=== PATIENT | male | born 1965 | race Caucasian/White ===

== ENCOUNTER → 2016-09-22 | Outpatient (CLI) | payer OTHER | LOC: BMCIMAGING 14:57 | PROVIDERS: ATTEND Podiatrist Foot & Ankle Surgery | DX: S82.62XD Displaced fracture of lateral malleolus of left fibula, subsequent encounter for closed fracture with routine healing (principal) ==

== ENCOUNTER → 2016-10-13 | Outpatient (CLI) | payer OTHER | LOC: FIMAGING 15:30 | PROVIDERS: ATTEND Orthopaedic Surgery | DX: Z01.818 Encounter for other preprocedural examination (principal); M17.11 Unilateral primary osteoarthritis, right knee; K59.00 Constipation, unspecified ==

== ENCOUNTER → 2016-11-16 | Outpatient (CLI) | payer OTHER | LOC: BMCIMAGING 15:50 | PROVIDERS: ATTEND Allergy & Immunology Allergy | DX: R05 Cough (principal); F17.200 Nicotine dependence, unspecified, uncomplicated ==

== ENCOUNTER 2016-12-06 08:48 | Observation (INO) | payer OTHER ==
[2016-11-25 16:28] LABS: % IMMATURE GRANULYOCYTES 0.3 % (0.0-1.1); ABSOLUTE IMMATURE GRANULOCYTES 0.03 10^3/uL (0.00-0.10); ADD DIFF? NO; ADD MORPH? NO; ADD SCAN? NO; ATYPICAL LYMPHOCYTE FLAG 0 (0-99); FRAGMENT RBC FLAG 0 (0-99); HEMATOCRIT 42.3 % (40.0-51.0); HEMOGLOBIN 15.1 g/dL (13.7-17.5); LEFT SHIFT FLG 0 (0-99); LIPEMIA HEMOLYSIS FLAG 90 (0-99); MEAN CELL HEMOGLOBIN 33.3 pg (27.9-34.1); MEAN CELL HEMOGLOBIN CONCENTR. 35.7 g/dL (32.4-36.7); MEAN CELL VOLUME 93.2 fL (81.5-99.8); MEAN PLATELET VOLUME 9.2 fL (8.7-11.7); PLATELET CLUMPS FLAG 10 (0-99); PLATELET COUNT 263 10^3/uL (150-400); RED BLOOD CELL COUNT 4.54 10^6/uL (4.40-6.38); RED CELL DISTRIBUTION WIDTH 12.3 % (11.5-15.2)
--- NOTE | 2016-12-06 07:06 | PDIAF ---
- Diagnosis Diagnosis: right knee djd Code Status: Full Code - Medication Management Discharge Medications: Medications to Continue on Transfer Acetaminophen [Tylenol 325mg (*)] 650 mg PO Q6 PRN 11/18/16 [Last Taken Unknown] Acetaminophen/ASA/Caffeine [Excedrin Tablet (*)] 2 each PO DAILY PRN 11/18/16 [ Last Taken Unknown] Cyclobenzaprine [Flexeril 10 MG (*)] 10 mg PO BID PRN 11/18/16 [Last Taken Unknown] Ibuprofen [Motrin (*)] 200 - 800 mg PO QID PRN 11/18/16 [Last Taken Unknown] Mometasone/Formoterol [Dulera 200 Mcg/5 Mcg Inhaler] 2 puffs IH BID 11/18/16 [ Last Taken Unknown] Montelukast Sodium [Singulair 10 mg (*)] 10 mg PO DAILY 11/18/16 [Last Taken Unknown] Tiotropium [place] [Spiriva Respimat] 1 inh IH DAILY 11/18/16 [Last Taken Unknown] Xloair (Allergy Shot) 1 dose IM Q14D 11/18/16 [Last Taken Unknown] Discharge Medications: Refer to the Discharge Home Medication list for PRN reason. - Orders Diet Recommendation: no restrictions on diet Diet Texture: Regular Texture Diet Wound Care Instructions: wbat. rom as lata. daily dressing changes. may shower without bandage. no soaking or immersion. f/u at two weeks. seek attn for increasing redness, swelling, drainage, and discharge - Follow Up Care Current Providers and Referrals: Makenzie Price MD [Primary Care Provider] -
[~2016-12-06 08:48] MED LIST: ACETAMINOPHEN 325 MG TAB PO PRN; BISACODYL 10 MG SUPP PR PRN; DIAZEPAM 5 MG TAB PO PRN; DIPHENOXYLATE/ATROPINE LOMOTIL 1 TAB PO PRN; LACTULOSE 20 GM/30 ML UDCUP PO PRN; LR 1,000 ML IV SCH; MAGNESIUM HYDROXIDE 30 ML UDCUP PO PRN; METOCLOPRAMIDE 10 MG/2 ML VIAL IVP PRN; ONDANSETRON 4 MG/2 ML VIAL IVP PRN; ONDANSETRON DISINTEGRATING 4 MG TAB PO PRN; PHARMACY PAIN CONSULT 1 EA MISC PRN; POLYETHYLENE GLYCOL 3350 17 GM PKT PO PRN; PROMETHAZINE HCL 25 MG SUPPR PR PRN; TEMAZEPAM 15 MG CAP PO PRN; diphenhydrAMINE 25 MG CAP PO PRN; oxyCODONE IR 5 MG TAB PO PRN; traMADol 50 MG TAB PO PRN
[2016-12-06] MEDS ORDERED: NS IV ONE (09:00)
[2016-12-06] MEDS ORDERED: ACETAMINOPHEN 325 MG TAB PO ONE (09:00)
[2016-12-06] MEDS ORDERED: CEFAZOLIN 2 GM/DEXTR 100 ML IV ONE (09:00)
[2016-12-06] MEDS ORDERED: ROPI/epiNEPH/KETOROLAC/morphINE JOINT COCKTAIL IU ONE (09:00)
[2016-12-06] MEDS ORDERED: FAMOTIDINE 20 MG TAB PO ONE (09:00)
[2016-12-06] MEDS ORDERED: MONTELUKAST SODIUM 10 MG TAB PO SCH (09:00)
[2016-12-06] MEDS ORDERED: CHLORHEXIDINE GLUC HIBICLENS 118 ML BTL TP ONE (09:00)
[2016-12-06] MEDS ORDERED: TRANEXAMIC ACID IV ONE (09:00)
[2016-12-06] MEDS ORDERED: TIOTROPIUM BROMIDE IH SCH (09:00)
[2016-12-06] MEDS ORDERED: NON-FORMULARY NEW DRUG (Mometasone/Formoterol [Dulera 200 Mcg/5 Mcg Inhaler] 2 PUFFS) IH SCH (09:00)
[2016-12-06] MEDS ORDERED: CALCIUM CHLORIDE 1 GM/10 ML INJ ONE (09:13)
[2016-12-06] MEDS ORDERED: THROMBIN (BOVINE) 5,000 UNIT VIAL TP ONE (09:13)
[2016-12-06] MEDS ORDERED: ceFAZolin 1 GM/5 ML SYR ONE (09:13)
[2016-12-06] MEDS ORDERED: LIDOCAINE 1% 2 ML INJ ONE (09:25)
[2016-12-06] MEDS ORDERED: LIDOCAINE 1% 5 ML SDV ID PRN (10:30)
[2016-12-06] MEDS ORDERED: LR 1,000 ML IV ONE (10:30)
[2016-12-06] MEDS ORDERED: fentaNYL 100 MCG/2 ML INJ ONE (10:38)
[2016-12-06] MEDS ORDERED: PROPOFOL/EMULSION 500 MG/50 ML BOTTLE IV ONE ×2 (10:38→11:38)
[2016-12-06] MEDS ORDERED: LIDOCAINE 2% 100 MG/5 ML SYR ONE (10:39)
[2016-12-06] MEDS ORDERED: DEXAMETHASONE 4 MG/ML VIAL ONE ×2 (10:39)
[2016-12-06] MEDS ORDERED: KETOROLAC 30 MG/1 ML SDV ONE (10:39)
[2016-12-06] MEDS ORDERED: BUPIVACAINE/DEXTROSE 7.5MG/ML 2 ML SPINAL AMP SP ONE (10:42)
[2016-12-06] MEDS ORDERED: MIDAZOLAM 2 MG/2 ML VIAL ONE (10:43)
[2016-12-06] MEDS: SENNOSIDES/DOCUSATE SODIUM TAB PO SCH ×2 (13:49→20:55)
[2016-12-06] MEDS: ACETAMINOPHEN 325 MG TAB PO SCH ×3 (13:50→23:36)
[2016-12-06] MEDS: ceFAZolin 2 GM/DEXTROSE 100 ML IV SCH (20:54)
[2016-12-06] MEDS: FAMOTIDINE 20 MG TAB PO SCH (20:55)
[2016-12-06] MEDS ORDERED: Mometasone/Formoterol [Dulera 200 Mcg/5 Mcg Inhaler] 2 PUFFS) IH SCH (21:00)
[2016-12-06] MEDS: ASPIRIN 325 MG TAB PO SCH (21:04)
[2016-12-07] MEDS: ceFAZolin 2 GM/DEXTROSE 100 ML IV SCH (04:07)
[2016-12-07] MEDS: FAMOTIDINE 20 MG TAB PO SCH ×2 (04:07→08:33)
[2016-12-07 05:02] LABS: HEMATOCRIT 40.5 % (40.0-51.0); HEMOGLOBIN 14.3 g/dL (13.7-17.5)
[2016-12-07] MEDS: ACETAMINOPHEN 325 MG TAB PO SCH (05:58)
[2016-12-07] MEDS: SENNOSIDES/DOCUSATE SODIUM TAB PO SCH (08:33)
[2016-12-07] MEDS: ASPIRIN 325 MG TAB PO SCH (08:33)
[2016-12-07] MEDS ORDERED: DULERA IH SCH (09:00)
[2016-12-07] MEDS ORDERED: MONTELUKAST SODIUM 10 MG TAB PO SCH (09:00)
[2016-12-07] MEDS ORDERED: TIOTROPIUM INHALER 18 MCG/DOSE 5 DOSE/MDI IH SCH (09:00)
--- NOTE | 2016-12-07 10:50 | GDS ---
[f rep st] DISCHARGE SUMMARY CATARACT LENS GENERATOR: Delta Cobb, ROVING CARRIER, SALES ASSISTANT [employer]TERTAINMENT [employer] PREOPERATIVE DIAGNOSIS: Right knee patellofemoral arthritis. POSTOPERATIVE DIAGNOSIS: Right knee patellofemoral arthritis. PROCEDURE: Right patellofemoral unicompartmental arthroplasty-MAKOplasty. OPERATIVE INDICATIONS: The patient is a 51-year-old gentleman with arthritis between his patellofem oral joint. He has failed all attempts at conservative management. Given his interference with roque ly living, I have recommended operative intervention. I have outlined the surgical procedure, risks , benefits, and alternatives. HOSPITAL COURSE: The patient was admitted overnight after uncomplicated patellofemoral arthroplasty , tolerated this procedure well. He had no postoperative complications. At the time of discharge, he was tolerating an oral diet. His pain is well controlled on oral medicines. He is voiding and s tooling without difficulty. His dressing is clean, dry, and intact. Incision is clean, dry, and in tact. He has negative Kraig's bilaterally. X-rays are stable, with no fracture or lucency. DISCHARGE ACTIVITIES: Weightbearing as tolerated. Range of motion as tolerated. Daily dressing ch anges. No soaking. May shower. FOLLOWUP: In 2 weeks. Seek attention for increasing redness, swelling, drainage, or discharge. /[id number]/MODL
[2016-12-07 11:36] VITALS: BP 136/80; PULSE 68; RESP 16; TEMP 97.6; O2SAT 97
== END 2016-12-07 11:53 | disposition home or self-care (01) ==
LOC: F3N 08:48
PROVIDERS: ADMIT Orthopaedic Surgery; ATTEND Orthopaedic Surgery
DX: M17.11 Unilateral primary osteoarthritis, right knee (principal); K59.00 Constipation, unspecified; J45.909 Unspecified asthma, uncomplicated; F43.10 Post-traumatic stress disorder, unspecified; F17.200 Nicotine dependence, unspecified, uncomplicated
CPT/HCPCS: 27446; 73560; 97110; 97116; 97161; 97165; G0378; G8978; G8979; G8980; C1713; J0171; J0690; J1100; J1885; J2001; J2250; J2704; J2795; J3010

== ENCOUNTER → 2017-01-25 | Outpatient (CLI) | payer OTHER | LOC: BMCIMAGING 13:11 | PROVIDERS: ATTEND Physician Assistant | DX: Z47.1 Aftercare following joint replacement surgery (principal); Z96.651 Presence of right artificial knee joint ==

== ENCOUNTER → 2017-03-16 | Outpatient (CLI) | payer OTHER | LOC: BMCIMAGING 14:42 | PROVIDERS: ATTEND Orthopaedic Surgery | DX: Z09 Encounter for follow-up examination after completed treatment for conditions other than malignant neoplasm (principal); Z96.651 Presence of right artificial knee joint ==

== ENCOUNTER → 2017-03-30 | Outpatient (CLI) | payer OTHER | LOC: FIMAGING 14:34 | PROVIDERS: ATTEND Orthopaedic Surgery | DX: Z01.818 Encounter for other preprocedural examination (principal); M22.42 Chondromalacia patellae, left knee ==

== ENCOUNTER → 2017-03-31 | Outpatient (CLI) | payer OTHER | LOC: BMCIMAGING 15:14 | PROVIDERS: ATTEND Orthopaedic Surgery | DX: M17.12 Unilateral primary osteoarthritis, left knee (principal) ==

== ENCOUNTER 2017-04-11 09:38 | Inpatient (IN) | payer OTHER ==
[2017-05-09] MEDS ORDERED: TRANEXAMIC ACID 820 MG in NS 100 ML IV ONE (06:00)
[2017-05-09] MEDS ORDERED: ROPIVACAINE 0.2% 80 MG, EPINEPHrine 0.2 MG, KETOROLAC TROMETHAMINE 30 MG, morphINE 10 M... IU ONE (06:00)
--- NOTE | 2017-05-09 06:48 | PDHPUP ---
History & Physical Update H&P update statement: This history and physical update is based on an assessment of the patient which was completed after admission or registration (within 24 hours), but prior to the surgery/procedure.
--- NOTE | 2017-05-09 06:49 | PDIAF ---
- Diagnosis Diagnosis: left patellofemoral knee arthritis Code Status: Full Code - Medication Management Discharge Medications: Medications to Continue on Transfer Acetaminophen [Tylenol 325mg (*)] 650 mg PO Q6 PRN 11/18/16 [Last Taken Unknown] Acetaminophen/ASA/Caffeine [Excedrin Tablet (*)] 2 each PO DAILY PRN 11/18/16 [ Last Taken Unknown] Cyclobenzaprine [Flexeril 10 MG (*)] 10 mg PO BID PRN 11/18/16 [Last Taken Unknown] Ibuprofen [Motrin (*)] 200 - 800 mg PO QID PRN 11/18/16 [Last Taken Unknown] Mometasone/Formoterol [Dulera 200 Mcg/5 Mcg Inhaler] 2 puffs IH BID 11/18/16 [ Last Taken 12/06/16] Montelukast Sodium [Singulair 10 mg (*)] 10 mg PO DAILY 11/18/16 [Last Taken ] Tiotropium [place] [Spiriva Respimat] 1 inh IH DAILY 11/18/16 [Last Taken ] Xloair (Allergy Shot) 1 dose IM Q14D 11/18/16 [Last Taken 11/30/16] Varenicline Tartrate [Chantix 1MG (*)] 1 mg PO BID 12/06/16 [Last Taken 12/05/16 ] Aspirin [Aspirin 325 mg (*)] 325 mg PO DAILY #0 tab 12/07/16 [Last Taken Unknown ] Discharge Medications: Refer to the Discharge Home Medication list for PRN reason. - Orders Services needed: Physical Therapy Activity/Weight Bearing Restrictions: daily dressing changes. may shower without bandage. no soaking or immersion. wbat. rom as tolerated. seek attn for increasing leg pain, swelling, drainage, other focal complaint - Follow Up Care Current Providers and Referrals: Makenzie Price MD [Primary Care Provider] -
[2017-05-09] MEDS ORDERED: ceFAZolin 2 GM/DEXTROSE 100 ML IV ONE (07:29)
[2017-05-09] MEDS ORDERED: ACETAMINOPHEN 325 MG TAB PO ONE (13:28)
[2017-05-09] MEDS ORDERED: FAMOTIDINE 20 MG TAB PO ONE (13:28)
[2017-05-09] MEDS ORDERED: DEXAMETHASONE 4 MG/ML VIAL IVP ONE (13:28)
[2017-05-09] MEDS ORDERED: LR 1,000 ML IV ONE (13:29)
[2017-05-09] MEDS ORDERED: LIDOCAINE 1% 2 ML INJ ID PRN (13:29)
[2017-05-09 14:18] LABS: % IMMATURE GRANULYOCYTES 0.7 % (0.0-1.1); ABSOLUTE IMMATURE GRANULOCYTES 0.05 10^3/uL (0.00-0.10); ADD DIFF? NO; ADD MORPH? NO; ADD SCAN? NO; ATYPICAL LYMPHOCYTE FLAG 20 (0-99); FRAGMENT RBC FLAG 0 (0-99); HEMATOCRIT 41.7 % (40.0-51.0); HEMOGLOBIN 15.3 g/dL (13.7-17.5); LEFT SHIFT FLG 0 (0-99); LIPEMIA HEMOLYSIS FLAG 90 (0-99); MEAN CELL HEMOGLOBIN 34.2 pg (27.9-34.1); MEAN CELL HEMOGLOBIN CONCENTR. 36.7 g/dL (32.4-36.7); MEAN CELL VOLUME 93.3 fL (81.5-99.8); PLATELET CLUMPS FLAG 0 (0-99); PLATELET COUNT 245 10^3/uL (150-400); RED BLOOD CELL COUNT 4.47 10^6/uL (4.40-6.38); RED CELL DISTRIBUTION WIDTH 12.1 % (11.5-15.2)
--- NOTE | 2017-05-09 14:49 | PDANEPAE ---
ANE Past Medical History - Cardiovascular History Hx Hypertension: No Hx Arrhythmias: No Hx Chest Pain: No Hx Coronary Artery / Peripheral Vascular Disease: No Hx CHF / Valvular Disease: No Hx Palpitations: No - Pulmonary History Hx COPD: No Hx Asthma/Reactive Airway Disease: No Hx Recent Upper Respiratory Infection: No Hx Oxygen in Use at Home: No Hx Sleep Apnea: No Sleep Apnea Screening Result - Last Documented: Negative Pulmonary History Comment: INHALERS - Neurologic History Hx Cerebrovascular Accident: No Hx Seizures: No Hx Dementia: No - Endocrine History Hx Diabetes: No - Renal History Hx Renal Disorders: No - Liver History Hx Hepatic Disorders: No - Neurological & Psychiatric Hx Hx Neurological and Psychiatric Disorders: Yes Neurological / Psychiatric History Comment: ON PROZAC - Cancer History Hx Cancer: No - Congenital Disorder History Hx Congenital Disorders: No - GI History Hx Gastrointestinal Disorders: No - Other Health History Other Health History: ECZEMA - Chronic Pain History Chronic Pain: No - Surgical History Prior Surgeries: HERNIA REPAIR 1999 ANE Review of Systems Review of Systems: - Exercise capacity METS (RN): 4 METS ANE Patient History - Allergies Allergies/Adverse Reactions: bupropion [From Wellbutrin] Allergy (Mild, Verified 12/06/16 10:35) Hives cobalt Allergy (Verified 12/06/16 10:35) corn Allergy (Verified 11/18/16 14:36) Hives gluten Allergy (Verified 11/18/16 14:36) soy Allergy (Verified 11/18/16 14:36) Hives sunflower oil Allergy (Verified 11/18/16 14:36) Hives sunflower seed Allergy (Verified 11/18/16 14:36) Hives tree nut Allergy (Verified 11/18/16 14:36) Hives - Home Medications Home Medications: Acetaminophen [Tylenol 325mg (*)] 650 mg PO Q6 PRN 11/18/16 [Last Taken 04/18/17 ] Acetaminophen/ASA/Caffeine [Excedrin Tablet (*)] 2 each PO DAILY PRN 11/18/16 [ Last Taken 03/14/17] Cyclobenzaprine [Flexeril 10 MG (*)] 10 mg PO BID PRN 11/18/16 [Last Taken 04/11] Ibuprofen [Motrin (*)] 200 - 800 mg PO QID PRN 11/18/16 [Last Taken 05/02/17] Mometasone/Formoterol [Dulera 200 Mcg/5 Mcg Inhaler] 2 puffs IH BID 11/18/16 [ Last Taken 05/08/17 23:00] Montelukast Sodium [Singulair 10 mg (*)] 10 mg PO DAILY 11/18/16 [Last Taken 23:00] Tiotropium [place] [Spiriva Respimat] 1 inh IH DAILY 11/18/16 [Last Taken 08:00] Xloair (Allergy Shot) 1 dose IM Q14D 11/18/16 [Last Taken 04/28/17] Varenicline Tartrate [Chantix 1MG (*)] 1 mg PO BID 12/06/16 [Last Taken 23:00] - NPO status NPO Since - Liquids (Date): 05/08/17 NPO Since - Liquids (Time): 23:55 NPO Since - Solids (Date): 05/08/17 NPO Since - Solids (Time): 23:00 - Smoking Hx Smoking Status: Never smoked - Family Anes Hx Family Hx Anesthesia Complications: NEG ANE Labs/Vital Signs - Labs Result Diagrams: 05/09/17 14:10 - Vital Signs Blood Pressure: 140/89 Heart Rate: 60 Respiratory Rate: 16 O2 Sat (%): 96 Height: 177.8 cm Weight: 81.647 kg ANE Physical Exam - Airway Mallampati Score: Class 1 - ASA Status ASA Status: II ANE Anesthesia Plan Anesthesia Plan: GA w LMA, spinal
[2017-05-09] MEDS ORDERED: MIDAZOLAM 2 MG/2 ML VIAL ONE (14:52)
[2017-05-09] MEDS ORDERED: fentaNYL 100 MCG/2 ML INJ ONE (14:53)
[2017-05-09] MEDS ORDERED: PROPOFOL 200 MG/20 ML VIAL ONE (14:53)
[2017-05-09] MEDS ORDERED: LIDOCAINE 2% JELLY 5 ML TUBE ONE (15:17)
[2017-05-09] MEDS ORDERED: ONDANSETRON 4 MG/2 ML VIAL ONE (15:17)
[2017-05-09] MEDS ORDERED: PROMETHAZINE HCL 25 MG/ML INJ IVP PRN (15:21)
[2017-05-09] MEDS ORDERED: ONDANSETRON DISINTEGRATING 4 MG TAB PO PRN (15:21)
[2017-05-09] MEDS ORDERED: diphenhydrAMINE 25 MG CAP PO PRN (15:21)
[2017-05-09] MEDS ORDERED: POLYETHYLENE GLYCOL 3350 17 GM PKT PO PRN (15:21)
[2017-05-09] MEDS ORDERED: DIAZEPAM 5 MG TAB PO PRN (15:21)
[2017-05-09] MEDS ORDERED: BISACODYL 10 MG SUPP PR PRN (15:21)
[2017-05-09] MEDS ORDERED: MAGNESIUM HYDROXIDE 30 ML UDCUP PO PRN (15:21)
[2017-05-09] MEDS ORDERED: traMADol 50 MG TAB PO PRN (15:21)
[2017-05-09] MEDS ORDERED: LACTULOSE 20 GM/30 ML UDCUP PO PRN (15:21)
[2017-05-09] MEDS ORDERED: DIPHENOXYLATE/ATROPINE LOMOTIL 1 TAB PO PRN (15:21)
[2017-05-09] MEDS ORDERED: ONDANSETRON 4 MG/2 ML VIAL IVP PRN (15:21)
[2017-05-09] MEDS ORDERED: TEMAZEPAM 15 MG CAP PO PRN (15:21)
[2017-05-09] MEDS ORDERED: PROMETHAZINE HCL 25 MG SUPPR PR PRN (15:21)
[2017-05-09] MEDS ORDERED: METOCLOPRAMIDE 10 MG/2 ML VIAL IVP PRN (15:21)
[2017-05-09] MEDS: ceFAZolin 1 GM/5 ML SYR ONE ×2 (15:24→16:33)
[2017-05-09] MEDS ORDERED: THROMBIN (BOVINE) 5,000 UNIT VIAL TP ONE (15:28)
[2017-05-09] MEDS ORDERED: CALCIUM CHLORIDE 1 GM/10 ML INJ ONE (15:28)
[2017-05-09] MEDS ORDERED: LR 1,000 ML IV SCH (15:30)
[2017-05-09] MEDS ORDERED: ceFAZolin 2 GM/SWFI 2 GM/20 ML SYR IVP ONE (16:00)
[2017-05-09] MEDS ORDERED: fentaNYL 100 MCG/2 ML INJ IVP PRN (16:27)
[2017-05-09] MEDS ORDERED: LR 500 ML IV PRN (16:27)
[2017-05-09] MEDS ORDERED: NALOXONE HCL 0.4 MG/ML INJ IVP PRN (16:27)
[2017-05-09] MEDS ORDERED: ALBUTEROL 3 ML DEYVIAL IH PRN (16:27)
--- NOTE | 2017-05-09 16:28 | POSTANESTH ---
Post Anesthetic Evaluation Cardiovascular Status: Normal, Stable Respiratory Status: Normal, Stable Level of Consciousness/Mental Status: Can Participate in Eval Pain Control: Adequate, Prn Tx Ordered Nausea/Vomiting Control: Adequate, Prn Tx Ordered Complications Possibly Related to Anesthesia: None Noted
[2017-05-09] MEDS: ACETAMINOPHEN 325 MG TAB PO SCH ×2 (18:06→23:21)
[2017-05-09] MEDS: TRANEXAMIC ACID 650 MG TAB PO SCH ×2 (18:55→23:20)
[2017-05-09] MEDS ORDERED: VARENICLINE TARTRATE 1 MG TAB PO SCH ×2 (21:00→22:00)
[2017-05-09] MEDS: SENNOSIDES/DOCUSATE SODIUM TAB PO SCH (21:13)
[2017-05-09] MEDS: FAMOTIDINE 20 MG TAB PO SCH (21:14)
[2017-05-09] MEDS: ASPIRIN 325 MG TAB PO SCH (21:14)
[2017-05-09] MEDS ORDERED: ceFAZolin 2 GM/DEXTROSE 100 ML IV SCH (22:00)
[2017-05-09] MEDS: Mometasone/Formoterol [Dulera 200 Mcg/5 Mcg Inhaler] IH SCH (22:18)
[2017-05-09] MEDS: oxyCODONE IR 5 MG TAB PO PRN (23:20)
[2017-05-09] MEDS: ceFAZolin 2 GM in D5W 100 ML IV SCH (23:21)
[2017-05-10 05:50] LABS: HEMATOCRIT 39.8 % (40.0-51.0); HEMOGLOBIN 14.5 g/dL (13.7-17.5)
[2017-05-10] MEDS: ceFAZolin 2 GM in D5W 100 ML IV SCH (06:27)
[2017-05-10] MEDS: ACETAMINOPHEN 325 MG TAB PO SCH ×2 (06:27→11:57)
[2017-05-10] MEDS: TRANEXAMIC ACID 650 MG TAB PO SCH (06:27)
[2017-05-10] MEDS ORDERED: HYDROCODONE/APAP 5/325 TAB PO PRN (07:15)
[2017-05-10] MEDS: FAMOTIDINE 20 MG TAB PO SCH (07:56)
[2017-05-10] MEDS: ASPIRIN 325 MG TAB PO SCH (07:57)
[2017-05-10] MEDS: SENNOSIDES/DOCUSATE SODIUM TAB PO SCH (07:57)
[2017-05-10] MEDS: oxyCODONE IR 5 MG TAB PO PRN (07:57)
[2017-05-10] MEDS: Mometasone/Formoterol [Dulera 200 Mcg/5 Mcg Inhaler] IH SCH (08:50)
[2017-05-10] MEDS: VARENICLINE TARTRATE 1 MG TAB PO SCH ×2 (08:50→09:21)
[2017-05-10] MEDS ORDERED: Tiotropium Bromide [Spiriva Respimat] IH SCH (09:00)
[2017-05-10] MEDS ORDERED: ALPRAZolam 0.5 MG TAB PO SCH (09:00)
[2017-05-10] MEDS ORDERED: MONTELUKAST SODIUM 10 MG TAB PO SCH (09:00)
--- NOTE | 2017-05-10 10:09 | GDS ---
[f rep st] DISCHARGE SUMMARY ADMIT DIAGNOSIS: Left knee patellofemoral arthritis. POSTOPERATIVE DIAGNOSIS: Left knee patellofemoral arthritis. PROCEDURE: Left patellofemoral MAKOplasty. HISTORY OF PRESENT ILLNESS: The patient is a 51-year-old gentleman, who is known to me for previous right knee patellofemoral MAKOplasty. He returns for planned left patellofemoral MAKOplasty. He has arthritis within his patellofemoral joint. He has failed all attempts at conservative management. I have therefore recommended operative intervention. He wished to proceed. Appropriate consent was signed and placed in patient's chart. HOSPITAL COURSE: The patient was admitted to the hospital floor after uncomplicated partial patellof emoral replacement. He tolerated the procedure well. He had no complications. At the time of disch arge, he is tolerating an oral diet. His pain is well controlled on oral medicines. He is voiding w ithout difficulty. His incision is clean, dry, and intact. He has negative Homans. X-rays are stab le anatomic alignment. DISCHARGE ACTIVITIES: Weightbearing and range of motion as tolerated. Daily dressing changes. May shower without the bandage; no soaking or immersion. DISCHARGE MEDICATIONS: Xanax 0.5 mg p.o. b.i.d., [place] 5 mg 1-2 every 6 hours p.r.n. pain, aspirin 3 25 mg p.o. daily. FOLLOWUP: 2 weeks. Seek attention for increasing redness, swelling, drainage, discharge, or other f ocal complaints. /[id number]/MODL
--- NOTE | 2017-05-10 10:59 | ASMTCMCOM ---
CM Note CM Note Notes: Met with patient and his girlfriend. He is POD #1 TKA and doing well - no homecare PT needed, he will follow up with his outpatient PT when appropriate. Date Signed: 05/10/2017 10:59 AM Electronically Signed By:Darlene Broussard RN
[2017-05-10 11:19] VITALS: BP 140/90; PULSE 74; RESP 14; TEMP 98.1; O2SAT 95
--- NOTE | 2017-05-10 14:53 | ASDISCHSUM ---
Discharge Information Plan Status:Home with No Needs Medically Cleared to Leave: Discharge Date:05/10/2017 12:50 PM CM D/C Disposition:Home, Routine, Self-Care ADT D/C Disposition:Home, Routine, Self-Care Projected Discharge Date:05/10/2017 12:50 PM Transportation at D/C:Family Discharge Delay Reason: Follow-Up Date:05/10/2017 12:50 PM Discharge Slot: Final Diagnosis: Placement Information Patient Contact Information Contact Name:LEONORA Relationship:Other Address: Work Phone: City:[place] Alternate Phone: State/[place] Code:[place] Email: Financial Information Financial Class:HMO and PPO Plans Primary Plan Desc:[employer] PPO Primary Plan Number:[id number] Secondary Plan Desc: Secondary Plan Number: Assessment Information [facility] CM Progress Note CM Note CM Note Notes: Met with patient and his girlfriend. He is POD #1 TKA and doing well - no homecare PT needed, he will follow up with his outpatient PT when appropriate. Date Signed: 05/10/2017 10:59 AM Electronically Signed By:Darlene Broussard RN Intervention Information
--- NOTE | 2017-05-14 01:20 | GOP ---
[f rep st] OPERATIVE REPORT DATE OF OPERATION: 05/09/2017 SURGEON: Elio Fisher MD QUARTER SECTION IRONER: Delta Cobb, PHOTO PRINT SPECIALIST, [facility]. engineer second assistant was a medical necessity for the entiret y of the case. PREOPERATIVE DIAGNOSIS: Left knee patellofemoral arthritis. POSTOPERATIVE DIAGNOSIS: Left knee patellofemoral arthritis. PROCEDURE PERFORMED: Left knee unicompartmental arthroplasty, patellofemoral joint, MAKOplasty. FINDINGS: SPECIMENS: To Pathology, none. INDICATIONS: The patient is a 51-year-old gentleman who has advanced arthritis to his patellofemoral articulation. He has undergone previous right patellofemoral replacement and returns for planned le ft patellofemoral replacement. He has advanced cartilaginous damage, both clinically and radiographi dimitry. He has persistent symptoms that have been refractory to conservative measures. I have, there fore, recommended operative intervention. I have outlined the surgical procedure, risks, benefits, a nd alternatives. He wished to proceed. Appropriate consent was signed and placed in patient's chart . DESCRIPTION OF PROCEDURE: The patient was identified in the preanesthesia area. The left knee clear ly demarcated as the operative site with indelible marker. He was given 2 g of Ancef intravenously e n route to the operative suite. In the OR, general endotracheal anesthesia was administered. Attent ion was turned to the left knee, which was sterilely prepped and draped in usual fashion. Appropriat e time-out procedure was carried out. The limb was sterilely prepped and draped in usual fashion. T he limb was exsanguinated with Esmarch bandage, tourniquet inflated to 275 mmHg. A small anterior midline incision was made. A medial parapatellar arthrotomy was created and the pat nadir was everted. There was grade 3 and 4 changes throughout the patellofemoral articulation in the medial and lateral compartments but otherwise minimally involved. Decision was made to proceed with a patellofemoral MAKOplasty. A percutaneous incision was made across the mid femur. 2 pins were the n placed and the femoral reference array affixed. There was a femoral check point placed. The bony landmarks were then entered into the computer. Using the MAKOplasty robot, imaging for a size 5 anderson llofemoral component was then created and a trial reduction was carried out. The patella was everted , cut in a freehand cutting technique, and drill holes made for a size 39 symmetric patella. The kne e cap tracked centrally with flexion extension without crepitation. The trial components were withdr awn. The bony surfaces were thoroughly cleansed and dried. In sequential fashion, the patella and p atella femoral components were then cemented into place. All marginal cement was withdrawn. Once th e cement was fully cured, the knee was taken through full range of motion which was stable and approp riate. The wound was irrigated. The medial parapatellar arthrotomy closed using #1 Ethibond suture. The tissue was injected with a joint cocktail of ropivacaine, morphine, Toradol, and epinephrine. The knee instilled with a platelet-rich plasma solution. Subcutaneous tissue closed using a Silver Roberts onocryl suture and brigette. A sterile dressing was applied. The patient was awakened, extubated and taken to recovery room in good, stable condition. TOTAL TOURNIQUET TIME: 30 minutes. COMPLICATIONS: None. IMPLANTS: Restoris patellofemoral component size 5, left and a Triathlon X3 Symmetric patella, size 39 x 11 mm thick. DISPOSITION: To the recovery room, then the floor. He is weightbearing, range of motion as tolerate d. /[id number]/MODL
== END 2017-05-10 12:50 | disposition home or self-care (01) | DRG 470 ==
LOC: F3N 05-09 13:10
PROVIDERS: ADMIT Orthopaedic Surgery; ATTEND Orthopaedic Surgery
PROC: 0SRD0JZ Replacement of Left Knee Joint with Synthetic Substitute, Open Approach (ICD-10-PCS; principal; 2017-05-09 16:00)
DX: M17.12 Unilateral primary osteoarthritis, left knee (principal)
CPT/HCPCS: 97161-GP; 97165-GO; C1713; J0171; J0690; J1100; J1885; J2250; J2405; J2704; J2795; J3010

== ENCOUNTER → 2017-06-15 | Outpatient (CLI) | payer OTHER | LOC: BMCIMAGING 13:43 | PROVIDERS: ATTEND Orthopaedic Surgery | DX: Z47.1 Aftercare following joint replacement surgery (principal); Z96.651 Presence of right artificial knee joint; Z96.652 Presence of left artificial knee joint ==

== ENCOUNTER → 2017-09-21 | Outpatient (CLI) | payer OTHER | LOC: BMCIMAGING 14:42 | PROVIDERS: ATTEND Orthopaedic Surgery | DX: Z47.1 Aftercare following joint replacement surgery (principal); Z96.652 Presence of left artificial knee joint ==

== ENCOUNTER → 2018-04-03 | Outpatient (CLI) | payer OTHER | LOC: BMCIMAGING 16:05 | PROVIDERS: ATTEND Orthopaedic Surgery | DX: Z47.1 Aftercare following joint replacement surgery (principal); Z96.651 Presence of right artificial knee joint; Z96.652 Presence of left artificial knee joint ==

== ENCOUNTER → 2019-01-04 | Outpatient (CLI) | payer OTHER | LOC: FIMAGING 13:43 ==